=== PATIENT | female | born 1940 | race Caucasian/White ===

== ENCOUNTER 2016-09-01 14:11 | Inpatient (IN) | payer MEDICARE, BC ==
[~2016-09-01] VITALS: Ht 149.9 cm; Wt 52.5 kg
[~2016-09-01 14:11] MED LIST: LIDOCAINE 2% SYR 5 ML IV ONE; PROPOFOL 50ML PER ML IV ONE
[2016-09-01 16:03] VITALS: BP_SYST 138; BP_SYST 140; RESP 18; TEMP 97.8
[2016-09-01 16:05] VITALS: BMI 20.4
[2016-09-01] MEDS ORDERED: BISACODYL 10 MG SUPP RECTAL PRN (17:10)
[2016-09-01] MEDS ORDERED: ACETAMINOPHEN 325 MG TAB PO PRN (17:10)
[2016-09-01] MEDS ORDERED: ALU/MAG/SIM 30 ML UDC PO PRN (17:10)
[2016-09-01] MEDS ORDERED: SODIUM CHLOR 0.9% W/KCL 20MEQ 1,000 ML IV SCH (17:10)
[2016-09-01] MEDS ORDERED: SALINE FLUSH 10 ML FLUSH PRN (17:10)
[2016-09-01] MEDS ORDERED: BISACODYL EC 5 MG TAB PO PRN (17:10)
[2016-09-01] MEDS ORDERED: ONDANSETRON 4 MG VIAL IV PRN (17:10)
[2016-09-01] MEDS ORDERED: MAG HYDROX 30 ML UDC PO PRN (17:10)
[2016-09-01] MEDS ORDERED: SODIUM CHLORIDE 0.9% 1,000 ML IV ONE (17:10)
[2016-09-01] MEDS ORDERED: NEB-ALBUTEROL 2.5 MG/3 ML INH ONE (17:40)
[2016-09-01] MEDS: NEB-ALBUTEROL 2.5 MG/3 ML INH SCH ×2 (17:43→23:24)
[2016-09-01 17:45] VITALS: RESP 20
[2016-09-01 19:48] VITALS: BP_SYST 112; RESP 16; TEMP 97.6
[2016-09-01] MEDS: SALINE FLUSH 10 ML FLUSH SCH (20:00)
[2016-09-01] MEDS: DONEPEZIL HCL 5 MG TAB PO SCH (20:10)
[2016-09-01] MEDS: ISOSORBIDE MONO 60 MG TAB PO SCH (20:10)
[2016-09-01] MEDS: MIRTAZAPINE 15 MG TAB PO SCH (20:10)
[2016-09-01] MEDS: Carvedilol 6.25 MG TAB PO SCH (20:10)
[2016-09-01] MEDS: FAMOTIDINE 20 MG TAB PO SCH (20:10)
[2016-09-01] MEDS: SODIUM CHLORIDE 0.9% FLUSH BAG 500 ML IV SCH (20:15)
[2016-09-02] VITALS: BP_SYST 134; RESP 16; TEMP 98
[2016-09-02 07:32] VITALS: BP_SYST 124; RESP 16; TEMP 97.9
[2016-09-02] MEDS: SALINE FLUSH 10 ML FLUSH SCH ×2 (07:36→21:27)
[2016-09-02] MEDS: NEB-ALBUTEROL 2.5 MG/3 ML INH SCH ×3 (07:50→22:56)
[2016-09-02] MEDS: Carvedilol 6.25 MG TAB PO SCH ×2 (09:18→21:28)
[2016-09-02] MEDS: FAMOTIDINE 20 MG TAB PO SCH ×2 (09:18→21:28)
[2016-09-02] MEDS: MAGNESIUM SULF 1 GM/100 ML 100 ML IV SCH ×2 (09:20→10:33)
[2016-09-02] MEDS ORDERED: SODIUM CHLOR 0.9% W/KCL 20MEQ 1,000 ML IV SCH (10:30)
[2016-09-02 10:47] VITALS: Ht 149.9 cm; Wt 52.5 kg
[2016-09-02 11:25] VITALS: BP_SYST 136; RESP 16; TEMP 97.5
[2016-09-02] MEDS ORDERED: BISACODYL EC 5 MG TAB PO ONE (12:40)
[2016-09-02] MEDS ORDERED: FENTANYL 100 MCG/HR PATCH TRANSDERM SCH (13:00)
[2016-09-02] MEDS ORDERED: MAG CIT SOLN 300 ML PO ONE (13:30)
[2016-09-02] MEDS ORDERED: PEG/E-LYTE 4,000 ML BTL PO ONE (14:00)
[2016-09-02 16:37] VITALS: BP_SYST 172; RESP 18; TEMP 97.3
[2016-09-02 20:40] VITALS: BP_SYST 139; RESP 16; TEMP 98
[2016-09-02] MEDS: ISOSORBIDE MONO 60 MG TAB PO SCH (21:28)
[2016-09-02] MEDS: MIRTAZAPINE 15 MG TAB PO SCH (21:28)
[2016-09-02] MEDS: DONEPEZIL HCL 5 MG TAB PO SCH (21:28)
[2016-09-02 23:00] VITALS: BP_SYST 148; RESP 16; TEMP 98.2
[2016-09-03] VITALS (8 sets, daily range): BP systolic 110–160; RESP 11–16; TEMP 98–99
[2016-09-03] MEDS: SODIUM CHLORIDE 0.9% FLUSH BAG 500 ML IV SCH (06:00)
[2016-09-03] MEDS: NEB-ALBUTEROL 2.5 MG/3 ML INH SCH (07:25)
[2016-09-03] MEDS: SALINE FLUSH 10 ML FLUSH SCH (08:00)
[2016-09-03] MEDS ORDERED: LACT RINGERS 1,000 ML IV SCH (09:15)
[2016-09-03] MEDS ORDERED: LIDOCAINE 1% BUFFERED 1 ML SYR INTRADERM PRN (09:15)
[2016-09-03] MEDS ORDERED: DICYCLOMINE 20 MG TAB PO PRN (09:45)
[2016-09-03] MEDS: Carvedilol 6.25 MG TAB PO SCH (10:53)
[2016-09-03] MEDS: FAMOTIDINE 20 MG TAB PO SCH (10:53)
[2016-09-03] MEDS ORDERED: KCL CR 20 MEQ TAB PO ONE (11:00)
[2016-09-04] MEDS ORDERED: FENTANYL 100 MCG/HR PATCH TRANSDERM SCH (13:00)
[2016-09-04] MEDS ORDERED: REMOVE FENTANYL PATCH XX SCH (13:00)
== END 2016-09-03 13:52 | disposition home or self-care (01) | DRG 392 ==
LOC: ENRESERVTM → ENRESERVDT → ENPENDDIS 15:21 → 4THE 15:21
PROVIDERS: ADMIT Family Medicine; ATTEND Family Medicine
PROC: 0DBK8ZX Excision of Ascending Colon, Via Natural or Artificial Opening Endoscopic, Diagnostic (ICD-10-PCS; 2016-09-03)
PROC: 0DBM8ZX Excision of Descending Colon, Via Natural or Artificial Opening Endoscopic, Diagnostic (ICD-10-PCS; 2016-09-03)
PROC: 0DBK8ZX Excision of Ascending Colon, Via Natural or Artificial Opening Endoscopic, Diagnostic (ICD-10-PCS; principal; 2016-09-03 12:15)
DX: K58.0 Irritable bowel syndrome with diarrhea (principal); I11.0 Hypertensive heart disease with heart failure; I50.22 Chronic systolic (congestive) heart failure; J44.9 Chronic obstructive pulmonary disease, unspecified; M80.88XA Other osteoporosis with current pathological fracture, vertebra(e), initial encounter for fracture; E86.0 Dehydration; D12.2 Benign neoplasm of ascending colon; I25.10 Atherosclerotic heart disease of native coronary artery without angina pectoris; Z85.42 Personal history of malignant neoplasm of other parts of uterus; G25.81 Restless legs syndrome; K21.9 Gastro-esophageal reflux disease without esophagitis; Z86.718 Personal history of other venous thrombosis and embolism; K57.30 Diverticulosis of large intestine without perforation or abscess without bleeding
CPT/HCPCS: 80048; 80053; 82274; 83630; 83735; 84100; 85025; 87045; 87046; 87177; 87493; 88305; 94640; 94799; 99223; 99232; 99239